=== PATIENT | male | born 1945 | race Caucasian/White ===

== ENCOUNTER 2019-04-17 11:56 | Emergency (ER) | payer MEDICARE, OTHER ==
[~2019-04-17] VITALS: Ht 177.8 cm; Wt 86.5 kg
[2019-04-17 12:03] VITALS: BP 117/87
[2019-04-17 12:19] LABS: BASOPHILS # (AUTO) 0.1 X10'3 (0-0.2); BASOPHILS % (AUTO) 1.4 % (0-1); EOSINOPHILS # (AUTO) 0.2 X10'3 (0-0.9); EOSINOPHILS % (AUTO) 2.1 % (0-6); HEMATOCRIT 48.9 % (42.0-52.0); HEMOGLOBIN 16.6 g/dl (14.0-17.9); LYMPHOCYTES # (AUTO) 2.4 X10'3 (1.1-4.8); LYMPHOCYTES % (AUTO) 29.5 % (21-51); MEAN CORPUSCULAR HEMOGLOBIN 32.3 PG (27.0-31.0); MEAN CORPUSCULAR VOLUME 94.9 FL (78-98); MEAN PLATELET VOLUME 7.9 FL (7.4-10.4); MONOCYTES # (AUTO) 0.8 X10'3 (0-0.9); MONOCYTES % (AUTO) 9.1 % (2-12); NEUTROPHILS # (AUTO) 4.8 X10'3 (1.8-7.7); NEUTROPHILS % (AUTO) 57.9 % (42-75); PLATELET COUNT 241 X10'3 (140-440); RED BLOOD COUNT 5.15 X10'6 (4.70-6.10); RED CELL DISTRIBUTION WIDTH 13.3 % (11.5-14.5); WHITE BLOOD COUNT 8.3 X10'3 (4.5-11.0)
[2019-04-17 12:33] LABS: ALANINE AMINOTRANSFERASE 23 U/L (12-78); ALBUMIN 3.3 G/DL (3.4-5.0); ALKALINE PHOSPHATASE 87 IU/L (46-116); ANION GAP 8 (8-16); ASPARTATE AMINO TRANSFERASE 19 U/L (10-37); BILIRUBIN,TOTAL 0.4 MG/DL (0.1-1.0); BLOOD UREA NITROGEN 17 MG/DL (7-18); BUN/CREATININE RATIO 11.6 (5.4-32.0); CALCIUM 8.1 MG/DL (8.5-10.1); CHLORIDE 109 MMOL/L (99-107); CREATININE 1.46 MG/DL (0.60-1.10); GLUCOSE 73 MG/DL (70-104); POTASSIUM 3.8 MMOL/L (3.5-5.1); SODIUM 143 MMOL/L (135-145); TOTAL CARBON DIOXIDE 26.2 MMOL/L (24-32); TOTAL PROTEIN 6.7 G/DL (6.4-8.2); eGFR 47 ML/MIN
== END 2019-04-17 13:02 | disposition left against medical advice (07) ==
LOC: ER 11:57
DX: R06.02 Shortness of breath (principal); Z53.21 Procedure and treatment not carried out due to patient leaving prior to being seen by health care provider
CPT/HCPCS: 36415; 71045; 80053; 84484; 85025; 93005

== ENCOUNTER 2019-04-28 15:14 | Emergency (ER) | payer MEDICARE ==
[~2019-04-28] VITALS: Ht 177.8 cm; Wt 185.0 kg
[2019-04-28 17:04] LABS: BASOPHILS # (AUTO) 0.1 X10'3 (0-0.2); BASOPHILS % (AUTO) 1.1 % (0-1); EOSINOPHILS # (AUTO) 0.1 X10'3 (0-0.9); EOSINOPHILS % (AUTO) 1.1 % (0-6); HEMATOCRIT 51.2 % (42.0-52.0); HEMOGLOBIN 17.4 g/dl (14.0-17.9); LYMPHOCYTES # (AUTO) 1.9 X10'3 (1.1-4.8); LYMPHOCYTES % (AUTO) 23.6 % (21-51); MEAN CORPUSCULAR HEMOGLOBIN 32.2 PG (27.0-31.0); MEAN CORPUSCULAR HGB CONC 33.9 g/dL (33.0-36.5); MEAN PLATELET VOLUME 8.5 FL (7.4-10.4); MONOCYTES # (AUTO) 0.8 X10'3 (0-0.9); MONOCYTES % (AUTO) 9.8 % (2-12); NEUTROPHILS # (AUTO) 5.3 X10'3 (1.8-7.7); NEUTROPHILS % (AUTO) 64.4 % (42-75); PLATELET COUNT 203 X10'3 (140-440); RED BLOOD COUNT 5.39 X10'6 (4.70-6.10); RED CELL DISTRIBUTION WIDTH 13.8 % (11.5-14.5); WHITE BLOOD COUNT 8.2 X10'3 (4.5-11.0)
[2019-04-28 17:13] LABS: PARTIAL THROMBOPLASTIN TIME 27 SECONDS (22-32)
[2019-04-28 17:18] LABS: ALANINE AMINOTRANSFERASE 24 U/L (12-78); ALBUMIN 3.5 G/DL (3.4-5.0); ALKALINE PHOSPHATASE 86 IU/L (46-116); ANION GAP 6 (8-16); ASPARTATE AMINO TRANSFERASE 21 U/L (10-37); BILIRUBIN,TOTAL 0.4 MG/DL (0.1-1.0); BLOOD UREA NITROGEN 19 MG/DL (7-18); BUN/CREATININE RATIO 13.7 (5.4-32.0); CALCIUM 8.9 MG/DL (8.5-10.1); CHLORIDE 107 MMOL/L (99-107); CREATININE 1.39 MG/DL (0.60-1.10); GLUCOSE 88 MG/DL (70-104); POTASSIUM 3.9 MMOL/L (3.5-5.1); SODIUM 142 MMOL/L (135-145); TOTAL CARBON DIOXIDE 29.3 MMOL/L (24-32); eGFR 50 ML/MIN
[2019-04-28] MEDS ORDERED: ipratropium/albuterol 3ml nebule NEB ONE (18:00)
--- NOTE | 2019-04-28 18:31 | NUR ---
RESP AT BEDSIDE TO GIVE BREATHING TREATMENT
--- NOTE | 2019-04-28 19:00 | NUR ---
O2 @ 94%RA with gait test. philippe gillespie notified
[2019-04-28] MEDS ORDERED: predniSONE 20 mg tablet PO ONE (19:10)
[2019-04-28] MEDS ORDERED: albuterol 2.5 MG/3 ML nebule CONTNEB STA (19:28)
[2019-04-28] MEDS ORDERED: ALBU8HFA PO (19:44)
[2019-04-28] MEDS ORDERED: PRED20TA PO (19:44)
[2019-04-28 21:36] VITALS: BP 103/54
[2019-04-28] MEDS ORDERED: ipratropium/albuterol 3ml nebule NEB SCH (23:00)
== END 2019-04-28 21:38 | disposition home or self-care (01) ==
LOC: ER 15:15
DX: J44.1 Chronic obstructive pulmonary disease with (acute) exacerbation (principal); I49.3 Ventricular premature depolarization; R42 Dizziness and giddiness; I10 Essential (primary) hypertension; M10.9 Gout, unspecified; Z86.73 Personal history of transient ischemic attack (TIA), and cerebral infarction without residual deficits; Z79.899 Other long term (current) drug therapy
CPT/HCPCS: 36415; 71045; 80053; 83735; 83880; 84443; 84484; 85025; 85610; 85730; 87502; 87503; 93005; 94640; 94644; 99285; J7512; 94760; 99284

== ENCOUNTER 2019-06-17 06:14 | Observation (INO) | payer MEDICARE, OTHER ==
[~2019-06-17] VITALS: Ht 177.8 cm; Wt 86.0 kg
[~2019-06-17 06:14] MED LIST: CLON0.1T2 PO; MULT-1179 PO; folic acid tablet PO
[2019-06-17] MEDS ORDERED: ipratropium/albuterol 3ml nebule NEB ONE (06:35)
[2019-06-17] MEDS ORDERED: methylPREDNISolone sod succ 125mg/2ml vial IV ONE (06:35)
[2019-06-17 06:51] LABS: BASOPHILS # (AUTO) 0.1 X10'3 (0-0.2); EOSINOPHILS # (AUTO) 0.2 X10'3 (0-0.9); EOSINOPHILS % (AUTO) 2.4 % (0-6); HEMATOCRIT 41.9 % (42.0-52.0); HEMOGLOBIN 14.5 g/dl (14.0-17.9); LYMPHOCYTES # (AUTO) 2.6 X10'3 (1.1-4.8); LYMPHOCYTES % (AUTO) 34.9 % (21-51); MEAN CORPUSCULAR HEMOGLOBIN 31.9 PG (27.0-31.0); MEAN CORPUSCULAR HGB CONC 34.5 g/dL (33.0-36.5); MEAN CORPUSCULAR VOLUME 92.7 FL (78-98); MEAN PLATELET VOLUME 7.8 FL (7.4-10.4); MONOCYTES # (AUTO) 0.7 X10'3 (0-0.9); MONOCYTES % (AUTO) 9.8 % (2-12); NEUTROPHILS # (AUTO) 3.8 X10'3 (1.8-7.7); NEUTROPHILS % (AUTO) 51.9 % (42-75); PLATELET COUNT 241 X10'3 (140-440); RED BLOOD COUNT 4.53 X10'6 (4.70-6.10); RED CELL DISTRIBUTION WIDTH 14.1 % (11.5-14.5); WHITE BLOOD COUNT 7.4 X10'3 (4.5-11.0)
[2019-06-17 07:00] VITALS: BP 145/66
[2019-06-17] MEDS ORDERED: albuterol 2.5 MG/3 ML nebule NEB ONE (07:05)
[2019-06-17 07:07] LABS: ALANINE AMINOTRANSFERASE 26 U/L (12-78); ALBUMIN 2.6 G/DL (3.4-5.0); ALBUMIN/GLOBULIN RATIO 0.7 (1.1-1.5); ALKALINE PHOSPHATASE 72 IU/L (46-116); ANION GAP 9 (8-16); ASPARTATE AMINO TRANSFERASE 15 U/L (10-37); BILIRUBIN,TOTAL 0.4 MG/DL (0.1-1.0); BLOOD UREA NITROGEN 16 MG/DL (7-18); BUN/CREATININE RATIO 13.7 (5.4-32.0); CALCIUM 8.2 MG/DL (8.5-10.1); CHLORIDE 112 MMOL/L (99-107); CREATININE 1.17 MG/DL (0.60-1.10); GLUCOSE 103 MG/DL (70-104); POTASSIUM 3.7 MMOL/L (3.5-5.1); SODIUM 145 MMOL/L (135-145); TOTAL CARBON DIOXIDE 24.3 MMOL/L (24-32); TOTAL PROTEIN 6.4 G/DL (6.4-8.2); eGFR 61 ML/MIN
[2019-06-17] MEDS ORDERED: HYDROcodone/acetaminophen 5mg/325mg tablet PO PRN (08:25)
[2019-06-17] MEDS ORDERED: ondansetron/PF 4mg/2ml inj IV PRN (08:25)
[2019-06-17] MEDS ORDERED: morphine 2 MG/ML inj. syringe IV PRN (08:25)
[2019-06-17] MEDS ORDERED: acetaminophen 325mg tablet PO PRN ×2 (08:25)
[2019-06-17] MEDS ORDERED: magnesium 4gm in 100ml NS 100 ML IV PRN (08:25)
[2019-06-17] MEDS ORDERED: magnesium 2GM in 50ml NS 50 ML IV PRN (08:25)
[2019-06-17] MEDS ORDERED: magnesium Cl slow-release 64mg tablet PO PRN (08:25)
[2019-06-17] MEDS ORDERED: potassium CL 10mEq/100ml bag 100 ML IV PRN ×2 (08:25)
[2019-06-17] MEDS ORDERED: potassium Cl 20 mEq SR tablet PO PRN ×2 (08:25)
--- NOTE | 2019-06-17 10:05 | NUR ---
Patient in room [facility]. I have received report from Ezio SKELTON and had the opportunity to ask questions and assume patient care.
[2019-06-17 11:00] VITALS: BP 145/66
[2019-06-17] MEDS: albuterol 2.5 MG/3 ML nebule NEB SCH ×3 (12:00→20:00)
[2019-06-17] MEDS ORDERED: MULT-1179 PO (13:20)
[2019-06-17] MEDS ORDERED: FOLI0.4T14 PO (13:20)
[2019-06-17] MEDS ORDERED: CLON0.3T PO (13:20)
[2019-06-17 18:15] VITALS: BP 163/87
--- NOTE | 2019-06-17 18:30 | NUR ---
Patient in room [facility]. I have received report from COSTA Lora and had the opportunity to ask questions and assume patient care.
--- NOTE | 2019-06-17 18:41 | NUR ---
patient refused nasal swab stated he was admitted a week ago and did not want to have it done again. Report given to Rose SKELTON
[2019-06-17] MEDS: K and/or MAG REPLACEMENT MC SCH (18:56)
[2019-06-17] MEDS: heparin, porcine 5000 units/ml vial SQ SCH (19:36)
[2019-06-17] MEDS: cloNIDine 0.1 mg tablet PO SCH (19:36)
[2019-06-17] MEDS: docusate sod 100mg capsule PO SCH (19:40)
[2019-06-17 21:01] VITALS: BP 157/96
[2019-06-17] MEDS ORDERED: temazepam 15mg capsule PO PRN (21:25)
[2019-06-17] MEDS ORDERED: Melatonin 3mg tablet PO PRN (22:05)
[2019-06-18 00:39] VITALS: BP 144/82
[2019-06-18] MEDS: albuterol 2.5 MG/3 ML nebule NEB SCH ×4 (03:14→11:11)
--- NOTE | 2019-06-18 06:12 | NUR ---
Problems reprioritized. Patient report given, questions answered & plan of care reviewed with COSTA Lora.
[2019-06-18 06:20] LABS: BASOPHILS % (AUTO) 0.3 % (0-1); EOSINOPHILS % (AUTO) 0 % (0-6); HEMATOCRIT 39.5 % (42.0-52.0); HEMOGLOBIN 13.4 g/dl (14.0-17.9); MEAN CORPUSCULAR HEMOGLOBIN 31.4 PG (27.0-31.0); MEAN CORPUSCULAR HGB CONC 33.9 g/dL (33.0-36.5); MEAN CORPUSCULAR VOLUME 92.6 FL (78-98); MONOCYTES # (AUTO) 0.7 X10'3 (0-0.9); MONOCYTES % (AUTO) 7.9 % (2-12); NEUTROPHILS # (AUTO) 6.7 X10'3 (1.8-7.7); NEUTROPHILS % (AUTO) 79.8 % (42-75); PLATELET COUNT 258 X10'3 (140-440); RED BLOOD COUNT 4.26 X10'6 (4.70-6.10); RED CELL DISTRIBUTION WIDTH 14.1 % (11.5-14.5); WHITE BLOOD COUNT 8.4 X10'3 (4.5-11.0)
--- NOTE | 2019-06-18 06:25 | NUR ---
Patient in room [facility]. I have received report from markell SKLETON and had the opportunity to ask questions and assume patient care.
[2019-06-18 06:29] LABS: ALBUMIN 2.7 G/DL (3.4-5.0); ANION GAP 12 (8-16); BLOOD UREA NITROGEN 28 MG/DL (7-18); BUN/CREATININE RATIO 22.4 (5.4-32.0); CALCIUM 8.4 MG/DL (8.5-10.1); CHLORIDE 109 MMOL/L (99-107); CREATININE 1.25 MG/DL (0.60-1.10); GLUCOSE 150 MG/DL (70-104); MAGNESIUM 1.7 MG/DL (1.5-2.4); POTASSIUM 3.9 MMOL/L (3.5-5.1); SODIUM 143 MMOL/L (135-145); TOTAL CARBON DIOXIDE 22.5 MMOL/L (24-32); eGFR 57 ML/MIN
[2019-06-18 07:00] VITALS: BP 125/77
[2019-06-18] MEDS: cloNIDine 0.1 mg tablet PO SCH (07:33)
[2019-06-18] MEDS: heparin, porcine 5000 units/ml vial SQ SCH (07:34)
[2019-06-18] MEDS: K and/or MAG REPLACEMENT MC SCH (08:00)
[2019-06-18] MEDS ORDERED: CefTRIAXone 2gm/D5W 50ml 50 ML IV SCH (08:00)
[2019-06-18] MEDS: docusate sod 100mg capsule PO SCH (08:00)
[2019-06-18] MEDS ORDERED: methylPREDNISolone sod succ 125mg/2ml vial IV SCH (08:00)
[2019-06-18] MEDS ORDERED: multivitamins, therapeutics tablet PO SCH (08:00)
[2019-06-18] MEDS ORDERED: folic acid 1mg tablet PO SCH (08:00)
[2019-06-18 11:34] VITALS: BP 107/62
[2019-06-18] MEDS ORDERED: CEFD300C3 PO (13:22)
[2019-06-18] MEDS ORDERED: FLUT1DIS4 INH (13:22)
[2019-06-18] MEDS ORDERED: ALBU18HF2 IH (13:22)
--- NOTE | 2019-06-18 14:54 | NUR ---
patient up and about all cares given . Able to ambulate in hallway. All Dc instructions given to patient. Meds called into [facility] on [address] . Cab called to transport patient. Appears stable for DC
--- NOTE | 2019-06-18 16:04 | NUR ---
patient DC at 1506 via cab in stable condition home meds called into [facility] .
== END 2019-06-18 15:07 | disposition home or self-care (01) ==
LOC: ER 06:15 → ED HOLD 08:24 → EDBEDREQ 08:47 → SUR 3N 09:34
PROVIDERS: ADMIT Internal Medicine; ATTEND Internal Medicine
DX: J44.1 Chronic obstructive pulmonary disease with (acute) exacerbation (principal); J96.20 Acute and chronic respiratory failure, unspecified whether with hypoxia or hypercapnia; I10 Essential (primary) hypertension; M10.9 Gout, unspecified; Z87.891 Personal history of nicotine dependence; Z86.73 Personal history of transient ischemic attack (TIA), and cerebral infarction without residual deficits; Z79.51 Long term (current) use of inhaled steroids; Z79.899 Other long term (current) drug therapy; Z91.010 Allergy to peanuts; Z88.8 Allergy status to other drugs, medicaments and biological substances
CPT/HCPCS: 36415; 71045; 80048; 80053; 83605; 83735; 83880; 84484; 85025; 87040; 93005; 94640; 94760; 96365; 96372; 96375; 96376; 97161; 97530; 99285; G0378; J0696; J1644; J2930

== ENCOUNTER 2019-09-21 11:40 | Emergency (ER) | payer OTHER, MEDICARE ==
[~2019-09-21] VITALS: Ht 177.8 cm; Wt 86.0 kg
[~2019-09-21 11:40] MED LIST changes: +ALBU18HF2 IH; -CLON0.1T2 PO; +CLON0.3T PO; +FLUT1DIS4 INH; +FOLI0.4T14 PO; -folic acid tablet PO
--- NOTE | 2019-09-21 13:23 | NUR ---
pt to ct
[2019-09-21 13:41] VITALS: BP 150/95
[2019-09-21] MEDS ORDERED: morphine 4 MG/ML inj SYRINge IV ONE (13:45)
--- NOTE | 2019-09-21 13:54 | NUR ---
PT WAS COMPLAINING OF PAIN AT 7/10 AND WAS HUNGRY, PT GIVEN PAIN MEDS AND SOME SNACKS, WILL CONTINUE TO MONITOR
[2019-09-21] MEDS ORDERED: HYDR-3965 PO (14:18)
--- NOTE | 2019-09-21 14:30 | NUR ---
CALLED TO PICK PT UP I LEFT A MESSAGE THERE WAS NO ANSWER
--- NOTE | 2019-09-21 15:05 | NUR ---
CALLED AGAIN [facility] GOING STRAIGHT TO [employer], PT DOESNT KNOW ANY OTHER NUMBER TO REACH
--- NOTE | 2019-09-21 15:31 | NUR ---
cab was called and will be here in one hour
== END 2019-09-21 16:18 | disposition home or self-care (01) ==
LOC: ER 11:41
DX: M54.5 Low back pain (principal); I10 Essential (primary) hypertension; J44.9 Chronic obstructive pulmonary disease, unspecified; M10.9 Gout, unspecified; Z86.73 Personal history of transient ischemic attack (TIA), and cerebral infarction without residual deficits; Z91.010 Allergy to peanuts; Z88.8 Allergy status to other drugs, medicaments and biological substances; Z79.899 Other long term (current) drug therapy; W18.39XA Other fall on same level, initial encounter; Y93.89 Activity, other specified; Y92.89 Other specified places as the place of occurrence of the external cause; Y99.8 Other external cause status
CPT/HCPCS: 72131; 96374; 99284; J2270

== ENCOUNTER 2019-11-02 22:03 | Emergency (ER) | payer OTHER, MEDICARE ==
[~2019-11-02] VITALS: Ht 177.8 cm; Wt 85.0 kg
[2019-11-02] MEDS ORDERED: ipratropium/albuterol 3ml nebule NEB ONE (22:20)
[2019-11-02] MEDS ORDERED: methylPREDNISolone sod succ 125mg/2ml vial IV ONE (22:20)
[2019-11-02 22:31] LABS: BASOPHILS # (AUTO) 0.1 X10'3 (0-0.2); BASOPHILS % (AUTO) 0.8 % (0-1); EOSINOPHILS % (AUTO) 0.5 % (0-6); HEMATOCRIT 45.8 % (42.0-52.0); HEMOGLOBIN 15.5 g/dl (14.0-17.9); LYMPHOCYTES # (AUTO) 1.8 X10'3 (1.1-4.8); LYMPHOCYTES % (AUTO) 18.7 % (21-51); MEAN CORPUSCULAR HEMOGLOBIN 32.6 PG (27.0-31.0); MEAN CORPUSCULAR HGB CONC 33.8 g/dL (33.0-36.5); MEAN CORPUSCULAR VOLUME 96.4 FL (78-98); MEAN PLATELET VOLUME 8.7 FL (7.4-10.4); MONOCYTES # (AUTO) 0.8 X10'3 (0-0.9); MONOCYTES % (AUTO) 8.4 % (2-12); NEUTROPHILS # (AUTO) 6.9 X10'3 (1.8-7.7); NEUTROPHILS % (AUTO) 71.6 % (42-75); PLATELET COUNT 205 X10'3 (140-440); RED BLOOD COUNT 4.75 X10'6 (4.70-6.10); RED CELL DISTRIBUTION WIDTH 14.1 % (11.5-14.5); WHITE BLOOD COUNT 9.6 X10'3 (4.5-11.0)
[2019-11-02 22:37] LABS: ALANINE AMINOTRANSFERASE 17 U/L (12-78); ALBUMIN 3.2 G/DL (3.4-5.0); ALKALINE PHOSPHATASE 80 IU/L (46-116); ANION GAP 10 (8-16); ASPARTATE AMINO TRANSFERASE 17 U/L (10-37); BILIRUBIN,TOTAL 0.6 MG/DL (0.1-1.0); BLOOD UREA NITROGEN 14 MG/DL (7-18); BUN/CREATININE RATIO 11.5 (5.4-32.0); CALCIUM 8.1 MG/DL (8.5-10.1); CHLORIDE 109 MMOL/L (99-107); CREATININE 1.22 MG/DL (0.60-1.10); GLUCOSE 98 MG/DL (70-104); POTASSIUM 3.3 MMOL/L (3.5-5.1); SODIUM 143 MMOL/L (135-145); TOTAL CARBON DIOXIDE 23.6 MMOL/L (24-32); TOTAL PROTEIN 6.5 G/DL (6.4-8.2); eGFR 58 ML/MIN
[2019-11-02] MEDS ORDERED: PRED20TA PO (23:19)
[2019-11-02 23:28] VITALS: BP 148/95
== END 2019-11-02 23:29 | disposition home or self-care (01) ==
LOC: ER 22:04
DX: J44.1 Chronic obstructive pulmonary disease with (acute) exacerbation (principal); F17.200 Nicotine dependence, unspecified, uncomplicated; I10 Essential (primary) hypertension; Z86.73 Personal history of transient ischemic attack (TIA), and cerebral infarction without residual deficits; Z91.010 Allergy to peanuts; Z88.8 Allergy status to other drugs, medicaments and biological substances; Z79.899 Other long term (current) drug therapy
CPT/HCPCS: 36415; 71045; 80053; 83880; 84484; 85025; 94640; 96374; 99285; J2930; 93005; 94760